=== PATIENT | male | born 1935 | race Caucasian/White ===

== ENCOUNTER → 2017-09-25 | Outpatient (CLI) | payer MEDICARE | END | disposition home or self-care (01) | LOC: PETSC 11:22 | DX: S22.32XA Fracture of one rib, left side, initial encounter for closed fracture (principal); J43.2 Centrilobular emphysema; R91.1 Solitary pulmonary nodule; Z72.0 Tobacco use; X58.XXXA Exposure to other specified factors, initial encounter; Y93.89 Activity, other specified; Y92.89 Other specified places as the place of occurrence of the external cause; Y99.8 Other external cause status | CPT/HCPCS: 78815; A9552 ==

== ENCOUNTER 2018-08-03 13:29 | Inpatient (IN) | payer MEDICARE ==
[2018-08-03] VITALS (10 sets, daily range): BP systolic 100–144; BP diastolic 60–77
[~2018-08-03] VITALS: Ht 177.8 cm; Wt 69.9 kg
[2018-08-03] MEDS ORDERED: AZITHROMYCIN 250 MG TABLET. PO ONE (15:30)
[2018-08-03] MEDS ORDERED: PHYTONADIONE 10 MG/ML AMPUL. SQ ONE (15:45)
[2018-08-03 16:09] LABS: BASO % 0 % (0-3); EOS % 0 % (0-3); HEMATOCRIT 25.3 % (39.0-53.0); HEMOGLOBIN 8.4 g/dL (13.0-17.5); LYMPH # 0.3 x10^3/uL (1.0-4.8); LYMPH % 5 % (24-48); MEAN CORPUSCULAR HEMOGLOBIN 31 pg (25-35); MEAN CORPUSCULAR HGB CONC 33 g/dL (31-37); MEAN CORPUSCULAR VOLUME 94 fL (79-100); MONO # 0.4 x10^3/uL (0.0-1.1); MONO % 7 % (0-9); NEUT # 4.6 x10^3uL (1.8-7.7); NEUT % 88 % (31-73); PLATELET COUNT 203 x10^3/uL (140-400); RED BLOOD COUNT 2.69 x10^6/uL (4.30-5.70); RED CELL DISTRIBUTION WIDTH 14.3 % (11.5-14.5); WHITE BLOOD COUNT 5.3 x10^3/uL (4.0-11.0)
[2018-08-03 16:21] LABS: CALCIUM 8.8 mg/dL (8.5-10.1); CREATININE 1.3 mg/dL (0.7-1.3); GFR 52.6; POTASSIUM 4.4 mmol/L (3.5-5.1)
[2018-08-03] MEDS: IPRATRPIUM/ALBUTEROL 0.5/2.5MG 3 ML NEBU. NEB SCH ×2 (16:26→19:21)
--- NOTE | 2018-08-03 16:42 | PDOC2 ---
GI CONSULT Reason For Consult: Hgb dropping HPI: HPI: 83 y/o male who says he felt unsteady about 1 week ago - he fell and his helped him to the ground. Since then, has had SOA, subjective fever, and cough. Additionally, decreased appetite. He saw his PCP this morning who sent him to [facility] [place] [facility] w/ Hgb "that was a couple points lower than last time" (details unclear). At [place], Hgb 9.4, MCV 96, plt 252, INR 6.2 (on Warfarin), BUN 31, Cr 1.3, and fecal occult positive. CXR was unrevealing for acute issue. He was transferred to [facility] for further care. I saw him this afternoon w/ his Lucie present. He denies obvious bleeding including hematemesis, hematochezia, and melena. He denies n/v, abd pain, diarrhea, and constipation. He has lost 5 pounds during the past week. He has rare acid reflux improved w/ 1/2 Tums PRN. He had an EGD w/ Dr. Lawrence in 2006 (describes dark stools around the time heart stents were placed) that showed Grade 1 reflux esophagitis, single cratered gastric ulcer (in lesser curve), and normal duodenum. No path available at our office; however, the patient describes what soudns like H. pylori treatment. No previous colonoscopy. No liver, GB, or pancreas history. H/o CAD, PAD, and A Fib on Warfarin (check INR once a month, last was 2.9 ~2 weeks ago) and ASA 81mg QD. Occasional NSAID use. PMH: PMH: CAD, OR, A Fib, COPD, trigeminal neuralgia cardiac stents, CABG, RFA stent, ?AAA repair, tonsillectomy, appendectomy, right FH: Family History: Cancer (sister - breast, daughter - pancreatic) Social History: Smoke: <1 pack per day ALCOHOL: none Drugs: None ROS: GEN: +fevers HEENT: Denies blurred vision, sore throat CV: Denies chest pain RESP: +SOA +cough GI: Per HPI : Denies hematuria, dysuria ENDO: +weight loss NEURO: +dizziness MSK: +weakness SKIN: Denies jaundice, pruritus Vitals: Vitals: Vital Signs Date Time Temp Pulse Resp B/P (MAP) Pulse Ox O2 Delivery O2 Flow Rate FiO2 08/03/18 16:13 97.6 101 18 113/71 (85) 96 Nasal Cannula 2.0 97.6 Labs: Labs: Laboratory Tests Test 08/03/18 15:45 White Blood Count 5.3 x10^3/uL (4.0-11.0) Red Blood Count 2.69 x10^6/uL (4.30-5.70) Hemoglobin 8.4 g/dL (13.0-17.5) Hematocrit 25.3 % (39.0-53.0) Mean Corpuscular Volume 94 fL (79-100) Mean Corpuscular Hemoglobin 31 pg (25-35) Mean Corpuscular Hemoglobin Concent 33 g/dL (31-37) Red Cell Distribution Width 14.3 % (11.5-14.5) Platelet Count 203 x10^3/uL (140-400) Neutrophils (%) (Auto) 88 % (31-73) Lymphocytes (%) (Auto) 5 % (24-48) Monocytes (%) (Auto) 7 % (0-9) Eosinophils (%) (Auto) 0 % (0-3) Basophils (%) (Auto) 0 % (0-3) Neutrophils # (Auto) 4.6 x10^3uL (1.8-7.7) Lymphocytes # (Auto) 0.3 x10^3/uL (1.0-4.8) Monocytes # (Auto) 0.4 x10^3/uL (0.0-1.1) Eosinophils # (Auto) 0.0 x10^3/uL (0.0-0.7) Basophils # (Auto) 0.0 x10^3/uL (0.0-0.2) Sodium Level 134 mmol/L (136-145) Potassium Level 4.4 mmol/L (3.5-5.1) Chloride Level 97 mmol/L (98-107) Carbon Dioxide Level 29 mmol/L (21-32) Anion Gap 8 (6-14) Blood Urea Nitrogen 29 mg/dL (8-26) Creatinine 1.3 mg/dL (0.7-1.3) Estimated GFR (Cockcroft-Gault) 52.6 Glucose Level 137 mg/dL (70-99) Calcium Level 8.8 mg/dL (8.5-10.1) Allergies: Coded Allergies: No Known Drug Allergies (Unverified , 08/03/18) PE: GEN: NAD HEENT: Atraumatic, PERRL LUNGS: productive cough, NC, diminished anteriorly HEART: RRR - distant ABD: NABS, S/ND/NT EXTREMITY: No edema SKIN: No rashes, no jaundice NEURO/PSYCH: A & O 3, very pleasant A/P: A/P: Dizziness, SOA, fevers, cough, decreased appetite Warfarin coagulopathy - INR 6.2 Normocytic anemia, +fecal occult - denies obvious bleeding, baseline Hgb unclear H/o PUD - on EGD in 2006 as above, ?H. pylori CRC screen - none H/o A Fib, CAD, PAD, COPD -- INR and pulm issues per primary - note orders for azithromycin, prednisone, FFP, and vit K. Monitor labs, observe for bleeding. Reviewed w/ Dr. Markham - IV PPI and NPO for now, check CBC every 8-12 hours and transfuse as needed to keep Hgb in 9-10 range w/ significant ischemic cardiac disease, also recheck INR in 4 hours and give prothrombin complex concentrate if still high. I will also return to his room for rectal exam. AMANDO VARNER August 03, 2018 16:41
[2018-08-03 16:43] LABS: % BANDS 23 % (0-9); % LYMPHS 4 % (24-48); % METAS 2 % (0-0); % MONOS 2 % (0-10); % SEGS 69 % (35-66); PLT ESTIMATE ADEQUATE (ADEQUATE); TOXIC GRANULATION SLIGHT
--- NOTE | 2018-08-03 17:32 | PDOC1 ---
History and Physical Date of Admission Date of Admission DATE: 08/03/18 TIME: 17:27 Identification/Chief Complaint Chief Complaint cough, weakness, anemia Source Source: Caregiver, Chart review History of Present Illness History of Present Illness Mr. Luong, 83 y/o male transfer here from [place] [facility] for weakness, cough, marked Hgb drop, 4 g/dl he has felt chest congestion and weakness for about a weak, presyncope at home, has had SOA, subjective fever, and cough. he reports no known change in stool, no blood in stool, hemocult pos at [facility] [place], Hgb 9.4, MCV 96, plt 252, INR 6.2 [ropr EGD w/ Dr. Lawrence in 2006 and had esophagitis, takes NSAIds Past Medical History Past Medical History H/o CAD, PAD, and A Fib on Warfarin Cardiovascular: CAD, HTN Pulmonary: No pertinent hx GI: GERD Heme/Onc: No pertinent hx Psych: No pertinent hx Musculoskeletal: low back pain Infectious disease: No pertinent hx ENT: No pertinent hx Past Surgical History Past Surgical History: Other, No pertinent history Family History Family History: Heart Disease Family History: Parent Social History Smoke: <1 pack per day ALCOHOL: none Drugs: None Current Medications Current Medications Current Medications Budesonide (Pulmicort) 0.5 mg RTBID NEB ; Start 08/03/18 at 20:00 Prednisone (Prednisone) 40 mg DAILY PO ; Start 08/03/18 at 16:30 Albuterol/ Ipratropium (Duoneb) 3 ml Q4HRS W/A NEB Last administered on 08/03/18at 16:26; Start 08/03/18 at 18:00 Azithromycin (Zithromax) 250 mg DAILY PO ; Start 08/04/18 at 09:00 Azithromycin (Zithromax) 250 mg 1X ONCE PO ; Start 08/03/18 at 15:30; Stop 08/03/18 at 16:02; Status DC Phytonadione (Vitamin K Ampule) 5 mg 1X ONCE SQ Last administered on 08/03/18at 17:09; Start 08/03/18 at 15:45; Stop 08/03/18 at 16:03; Status DC Pantoprazole Sodium 80 mg/ Sodium Chloride 100 ml @ 10 mls/hr Q10H IV ; Start 08/03/18 at 16:45 Metoprolol Tartrate (Lopressor) 25 mg BID PO ; Start 08/03/18 at 21:00 Allergies Allergies: Coded Allergies: No Known Drug Allergies (Unverified , 08/03/18) ROS General: YES: Fatigue, Malaise, Appetite; No: Chills, Night Sweats, Other PSYCHOLOGICAL ROS: YES: Sleep disturbances; No: Anxiety, Behavioral Disorder, Concentration difficultie, Decreased libido, Depression, Disorientation, Hallucinations, Hostility, Irritablity, Memory difficulties, Mood Swings, Obsessive thoughts, Physical abuse, Sexual abuse, Suicidal ideation, Other Eyes: No Blurry vision, No Decreased vision, No Double vision, No Dry eyes, No Excessive tearing, No Eye Pain, No Itchy Eyes, No Loss of vision, No Photophobia, No Scotomata, No Uses contacts, No Uses glasses, No Other Respiratory: YES: Shortness of breath, SOB with excertion, Sputum Changes, Tachypnea Cardiovascular: No Chest Pain, No Palpitations, No Orthopnea, No Paroxysmal Noc. Dyspnea, No Edema, No Lt Headedness, No Other Gastrointestinal: Yes Nausea; No Vomiting, No Abdominal Pain, No Diarrhea, No Constipation, No Melena, No Hematochezia, No Other Genitourinary: No Dysuria, No Frequency, No Incontinence, No Hematuria, No Retention, No Discharge, No Urgency, No Pain, No Flank Pain, No Other, No , No , No , No , No , No , No Musculoskeletal: No Gait Disturbance, No Joint Pain, No Joint Stiffness, No Joint Swelling, No Muscle Pain, No Muscular Weakness, No Pain In:, No Swelling In:, No Other Neurological: No Behavorial Changes, No Bowel/Bladder ControlChng, No Confusion, No Dizziness, No Gait Disturbance, No Headaches, No Impaired Coord/balance, No Memory Loss, No Numbness/Tingling, No Seizures, No Speech Problems, No Tremors, No Visual Changes, No Weakness, No Other Skin: No Dry Skin, No Eczema, No Hair Changes, No Lumps, No Mole Changes, No Mottling, No Nail Changes, No Pruritus, No Rash, No Skin Lesion Changes, No Other, No Acne Physical Exam General: Alert, Oriented X3, Cooperative HEENT: Atraumatic, PERRLA Lungs: Clear to auscultation Heart: RRR Abdomen: Normal bowel sounds, Soft Rectal Exam: other (occult pos) Extremities: No clubbing Neuro: Normal gait, Normal speech, Strength at 5/5 X4 ext, Sensation intact Psych/Mental Status: Mental status NL, Mood NL Vitals Vitals Vital Signs Date Time Temp Pulse Resp B/P (MAP) Pulse Ox O2 Delivery O2 Flow Rate FiO2 08/03/18 16:13 97.6 101 18 113/71 (85) 96 Nasal Cannula 2.0 97.6 Labs Labs Laboratory Tests Test 08/03/18 15:45 White Blood Count 5.3 x10^3/uL (4.0-11.0) Red Blood Count 2.69 x10^6/uL (4.30-5.70) Hemoglobin 8.4 g/dL (13.0-17.5) Hematocrit 25.3 % (39.0-53.0) Mean Corpuscular Volume 94 fL (79-100) Mean Corpuscular Hemoglobin 31 pg (25-35) Mean Corpuscular Hemoglobin Concent 33 g/dL (31-37) Red Cell Distribution Width 14.3 % (11.5-14.5) Platelet Count 203 x10^3/uL (140-400) Neutrophils (%) (Auto) 88 % (31-73) Lymphocytes (%) (Auto) 5 % (24-48) Monocytes (%) (Auto) 7 % (0-9) Eosinophils (%) (Auto) 0 % (0-3) Basophils (%) (Auto) 0 % (0-3) Neutrophils # (Auto) 4.6 x10^3uL (1.8-7.7) Lymphocytes # (Auto) 0.3 x10^3/uL (1.0-4.8) Monocytes # (Auto) 0.4 x10^3/uL (0.0-1.1) Eosinophils # (Auto) 0.0 x10^3/uL (0.0-0.7) Basophils # (Auto) 0.0 x10^3/uL (0.0-0.2) Segmented Neutrophils % 69 % (35-66) Band Neutrophils % 23 % (0-9) Lymphocytes % 4 % (24-48) Monocytes % 2 % (0-10) Metamyelocytes % 2 % (0-0) Toxic Granulation Slight Dohle Bodies Present Platelet Estimate Adequate (ADEQUATE) Prothrombin Time 63.0 SEC (11.7-14.0) Prothromb Time International Ratio 7.3 (0.8-1.1) Sodium Level 134 mmol/L (136-145) Potassium Level 4.4 mmol/L (3.5-5.1) Chloride Level 97 mmol/L (98-107) Carbon Dioxide Level 29 mmol/L (21-32) Anion Gap 8 (6-14) Blood Urea Nitrogen 29 mg/dL (8-26) Creatinine 1.3 mg/dL (0.7-1.3) Estimated GFR (Cockcroft-Gault) 52.6 Glucose Level 137 mg/dL (70-99) Calcium Level 8.8 mg/dL (8.5-10.1) Laboratory Tests Test 08/03/18 15:45 White Blood Count 5.3 x10^3/uL (4.0-11.0) Red Blood Count 2.69 x10^6/uL (4.30-5.70) Hemoglobin 8.4 g/dL (13.0-17.5) Hematocrit 25.3 % (39.0-53.0) Mean Corpuscular Volume 94 fL (79-100) Mean Corpuscular Hemoglobin 31 pg (25-35) Mean Corpuscular Hemoglobin Concent 33 g/dL (31-37) Red Cell Distribution Width 14.3 % (11.5-14.5) Platelet Count 203 x10^3/uL (140-400) Neutrophils (%) (Auto) 88 % (31-73) Lymphocytes (%) (Auto) 5 % (24-48) Monocytes (%) (Auto) 7 % (0-9) Eosinophils (%) (Auto) 0 % (0-3) Basophils (%) (Auto) 0 % (0-3) Neutrophils # (Auto) 4.6 x10^3uL (1.8-7.7) Lymphocytes # (Auto) 0.3 x10^3/uL (1.0-4.8) Monocytes # (Auto) 0.4 x10^3/uL (0.0-1.1) Eosinophils # (Auto) 0.0 x10^3/uL (0.0-0.7) Basophils # (Auto) 0.0 x10^3/uL (0.0-0.2) Segmented Neutrophils % 69 % (35-66) Band Neutrophils % 23 % (0-9) Lymphocytes % 4 % (24-48) Monocytes % 2 % (0-10) Metamyelocytes % 2 % (0-0) Toxic Granulation Slight Dohle Bodies Present Platelet Estimate Adequate (ADEQUATE) Prothrombin Time 63.0 SEC (11.7-14.0) Prothromb Time International Ratio 7.3 (0.8-1.1) Sodium Level 134 mmol/L (136-145) Potassium Level 4.4 mmol/L (3.5-5.1) Chloride Level 97 mmol/L (98-107) Carbon Dioxide Level 29 mmol/L (21-32) Anion Gap 8 (6-14) Blood Urea Nitrogen 29 mg/dL (8-26) Creatinine 1.3 mg/dL (0.7-1.3) Estimated GFR (Cockcroft-Gault) 52.6 Glucose Level 137 mg/dL (70-99) Calcium Level 8.8 mg/dL (8.5-10.1) VTE Prophylaxis Ordered VTE Prophylaxis Devices: Contraindicated VTE Pharmacological Prophylaxi: Contraindicated Assessment/Plan Assessment/Plan marked hgb drop, acute blood loss anemia, supratherapeutic INR on coumadin, cough, dyspnea acute bronchitis, likely COPD with exac tobacco use disorder, trying to quit, I gave encouragement, < 30 min ESTELLA SPENCER MD August 03, 2018 17:32
[2018-08-03 18:10] LABS: TOTAL BILIRUBIN 0.3 mg/dL (0.2-1.0)
[2018-08-03] MEDS: predniSONE 20 MG TABLET PO SCH (18:27)
[2018-08-03] MEDS: BUDESONIDE 0.5 MG/2 ML NEBU. NEB SCH (19:21)
[2018-08-03] MEDS ORDERED: CONTRAST GIVEN. MC PRN (20:45)
[2018-08-03] MEDS ORDERED: IOHEXOL 300 MG/ML 100ML VIAL. IV ONE (20:45)
[2018-08-03] MEDS: METOPROLOL TART IMMED RELEASE 25 MG TABLET. PO SCH (22:02)
[2018-08-03] MEDS: PANTOPRAZOLE SODIUM IV DRIP 80 MG in IV NORMAL SALINE 100ML 100 ML IV SCH (22:02)
[2018-08-04] MEDS ORDERED: CARB200T PO (00:39)
[2018-08-04] MEDS ORDERED: FURO40TA4 PO (00:39)
[2018-08-04] MEDS ORDERED: METO25TA4 PO (00:39)
[2018-08-04] MEDS ORDERED: WARF7.5T45 PO (00:39)
[2018-08-04] MEDS ORDERED: MECL25TA3 PO (00:39)
[2018-08-04] MEDS ORDERED: GABA600T7 PO (00:39)
[2018-08-04] MEDS ORDERED: WARF10TA40 PO (00:39)
[2018-08-04] MEDS ORDERED: POTA20PA30 PO (00:39)
[2018-08-04] MEDS ORDERED: CRESTOR20 MG PO (00:39)
[2018-08-04] MEDS ORDERED: ASPI-612 PO (00:39)
[2018-08-04 03:11] VITALS: BP 120/71
--- NOTE | 2018-08-04 06:28 | NUR ---
Notified Dr. Mclean of Hr 34, 36 and pauses. Will put copy of events on chart for doctor to review.
[2018-08-04 07:00] VITALS: BP 126/68
[2018-08-04] MEDS: BUDESONIDE 0.5 MG/2 ML NEBU. NEB SCH ×2 (07:23→19:59)
[2018-08-04] MEDS: IPRATRPIUM/ALBUTEROL 0.5/2.5MG 3 ML NEBU. NEB SCH ×5 (07:23→22:00)
[2018-08-04 07:46] LABS: BASO % 0 % (0-3); EOS % 0 % (0-3); HEMATOCRIT 26.7 % (39.0-53.0); HEMOGLOBIN 9.1 g/dL (13.0-17.5); LYMPH # 0.6 x10^3/uL (1.0-4.8); LYMPH % 10 % (24-48); MEAN CORPUSCULAR HEMOGLOBIN 31 pg (25-35); MEAN CORPUSCULAR HGB CONC 34 g/dL (31-37); MEAN CORPUSCULAR VOLUME 92 fL (79-100); MONO # 0.7 x10^3/uL (0.0-1.1); MONO % 12 % (0-9); NEUT % 79 % (31-73); PLATELET COUNT 214 x10^3/uL (140-400); RED CELL DISTRIBUTION WIDTH 14.8 % (11.5-14.5); WHITE BLOOD COUNT 6.4 x10^3/uL (4.0-11.0)
[2018-08-04 07:55] LABS: ALBUMIN 2.3 g/dL (3.4-5.0); ALBUMIN/GLOBULIN RATIO 0.5 (1.0-1.7); CALCIUM 8.9 mg/dL (8.5-10.1); CREATININE 1.1 mg/dL (0.7-1.3); GFR 63.8; POTASSIUM 4.1 mmol/L (3.5-5.1); TOTAL BILIRUBIN 0.4 mg/dL (0.2-1.0); TOTAL PROTEIN 6.6 g/dL (6.4-8.2)
[2018-08-04 08:02] LABS: PROTHROMBIN TIME PATIENT 23.8 SEC (11.7-14.0)
[2018-08-04] MEDS ORDERED: IOHEXOL 300 MG/ML 100ML VIAL. IV ONE (08:45)
[2018-08-04] MEDS: predniSONE 20 MG TABLET PO SCH (08:55)
[2018-08-04] MEDS: AZITHROMYCIN 250 MG TABLET. PO SCH (08:55)
[2018-08-04] MEDS: METOPROLOL TART IMMED RELEASE 25 MG TABLET. PO SCH ×2 (08:56→21:29)
[2018-08-04] MEDS: PANTOPRAZOLE SODIUM IV DRIP 80 MG in IV NORMAL SALINE 100ML 100 ML IV SCH (08:57)
[2018-08-04] MEDS ORDERED: CONTRAST GIVEN. MC PRN (09:00)
[2018-08-04] MEDS ORDERED: IV NORMAL SALINE 1000ML BAG 1,000 ML IV ONE (09:30)
--- NOTE | 2018-08-04 09:43 | CONS ---
DATE OF CONSULTATION: ATTENDING PHYSICIAN: Dr. Phillips. REASON FOR CONSULTATION: Dyspnea, weakness. HISTORY OF PRESENT ILLNESS: The patient is an 83-year-old male who has a history of ongoing tobacco use for at least 40+ years. He also has history of enlarging nodule in the left upper lobe and due to high risk for biopsy, he had empiric radiation to his chest and has been followed by Oncology from [facility] at a clinic in [place]. The patient has been told that his nodule has been shrinking. He was brought into the hospital with increasing weakness, he was found to have hemoglobin of 4. He felt chest congestion and weakness as well. He had some presyncope at home. He normally is not on oxygen and currently requiring 2-3 liters of oxygen. No headaches. No nausea, no vomiting, no diarrhea. No focal weakness. No skin rash. No imaging study has been performed yet. PAST MEDICAL HISTORY: Significant for history of CAD; history of atrial fibrillation, on warfarin; history of PAD; hypertension; GERD. PAST SURGICAL HISTORY: No recent surgery. ALLERGIES: None. MEDICATIONS: All reviewed, as listed in the MRAD. REVIEW OF SYSTEMS: Twelve-point system obtained. Pertinent positives discussed in my history of present illness, otherwise noncontributory. All systems that were negative were reviewed as well. SOCIAL HISTORY: Tobacco use for 40+ years and still smokes cigarettes. PHYSICAL EXAMINATION: VITAL SIGNS: Stable. Pulse ox 94% on 2 liters. NECK: Supple. LUNGS: With occasional wheezing and rhonchi. CARDIOVASCULAR: Regular rate. ABDOMEN: Soft, nontender. EXTREMITIES: With no pitting edema. LABORATORY DATA: Reviewed. Hemoglobin is now 9.1. White cell count 6.4 and platelets are 215. BUN and creatinine 27 and 1.1. IMPRESSION: 1. Dyspnea with acute hypoxic respiratory failure secondary to acute exacerbation of chronic obstructive pulmonary disease and markedly contributed by progressive anemia. 2. Acute blood loss anemia. Could be [id number]. He presented with hemoglobin of 4.0 at [place], now hemoglobin is up to 9.1. 3. History of increasing nodule involving the left upper lobe, which was 11 mm in size and also right hilar fullness. He had abnormal PET scan in 2018 in those areas and he was a high risk candidate for biopsy. As a result, he has been empirically treated by school photograph editor from [facility]. He sees them at [facility] and has a last CAT scan done a month ago and was told that it has been shrinking. 4. Severe protein-calorie malnutrition with an albumin level of 2.3. 5. Acute bronchitis. Cannot exclude pneumonia, need a chest x-ray. 6. Atrial fibrillation, on chronic anticoagulation with Coumadin and had Coumadin overdose with INR of 7.3, now down to 2.2. RECOMMENDATIONS: 1. Continue with present oxygen. 2. Obtain chest x-ray. 3. Bronchodilators. 4. Empiric antibiotic for now. 5. Follow GI recommendations. 6. The patient to follow with [facility] regarding further followup on these lung nodules and right hilar fullness. DORITA PATTON MD DR: CINDY/lianne JOB#: [id number] / [id number] NORMA
--- NOTE | 2018-08-04 09:48 | PDOC ---
Subjective: Subjective: Had clear liquids for breakfast. Says two small stools yesterday were dark. Breathing is better but feels best while sitting up. Wants to know the plan because he doesn't want his to have to keep driving to the hospital because she has her dog and yard to take care of. Objective: Objective: CT A/P ordered last night not done. Received 1 unit pRBCs and FFP, also vit K. Note orders to advance diet as tolerated. RN thinks there might have been some darker blood surrounding stool this morning. Vital Signs: Vital Signs Date Time Temp Pulse Resp B/P (MAP) Pulse Ox O2 Delivery O2 Flow Rate FiO2 08/04/18 08:56 92 126/68 08/04/18 08:00 Nasal Cannula 2.0 08/04/18 07:24 94 08/04/18 07:00 97.5 18 97.5 Labs: Laboratory Tests Test 08/03/18 15:45 08/04/18 06:00 White Blood Count 5.3 x10^3/uL 6.4 x10^3/uL Red Blood Count 2.69 x10^6/uL 2.90 x10^6/uL Hemoglobin 8.4 g/dL 9.1 g/dL Hematocrit 25.3 % 26.7 % Mean Corpuscular Volume 94 fL 92 fL Mean Corpuscular Hemoglobin 31 pg 31 pg Mean Corpuscular Hemoglobin Concent 33 g/dL 34 g/dL Red Cell Distribution Width 14.3 % 14.8 % Platelet Count 203 x10^3/uL 214 x10^3/uL Neutrophils (%) (Auto) 88 % 79 % Lymphocytes (%) (Auto) 5 % 10 % Monocytes (%) (Auto) 7 % 12 % Eosinophils (%) (Auto) 0 % 0 % Basophils (%) (Auto) 0 % 0 % Neutrophils # (Auto) 4.6 x10^3uL 5.0 x10^3uL Lymphocytes # (Auto) 0.3 x10^3/uL 0.6 x10^3/uL Monocytes # (Auto) 0.4 x10^3/uL 0.7 x10^3/uL Eosinophils # (Auto) 0.0 x10^3/uL 0.0 x10^3/uL Basophils # (Auto) 0.0 x10^3/uL 0.0 x10^3/uL Segmented Neutrophils % 69 % Band Neutrophils % 23 % Lymphocytes % 4 % Monocytes % 2 % Metamyelocytes % 2 % Toxic Granulation Slight Dohle Bodies Present Platelet Estimate Adequate Prothrombin Time 63.0 SEC 23.8 SEC Prothromb Time International Ratio 7.3 2.2 Fibrinogen 837 mg/dL Sodium Level 134 mmol/L 137 mmol/L Potassium Level 4.4 mmol/L 4.1 mmol/L Chloride Level 97 mmol/L 101 mmol/L Carbon Dioxide Level 29 mmol/L 27 mmol/L Anion Gap 8 9 Blood Urea Nitrogen 29 mg/dL 27 mg/dL Creatinine 1.3 mg/dL 1.1 mg/dL Estimated GFR (Cockcroft-Gault) 52.6 63.8 Glucose Level 137 mg/dL 120 mg/dL Calcium Level 8.8 mg/dL 8.9 mg/dL Total Bilirubin 0.3 mg/dL 0.4 mg/dL Lactate Dehydrogenase 142 U/L BUN/Creatinine Ratio 25 Aspartate Amino Transf (AST/SGOT) 56 U/L Alanine Aminotransferase (ALT/SGPT) 54 U/L Alkaline Phosphatase 145 U/L Total Protein 6.6 g/dL Albumin 2.3 g/dL Albumin/Globulin Ratio 0.5 PE: GEN: NAD LUNGS: NC HEART: RR ABD: S/ND/NT NEURO/PSYCH: A & O 3 A/P: SOA, cough, h/o COPD - per pulm, CXR ordered Warfarin coagulopathy - improved (INR 7.3 to 2.2) Anemia, +fecal occult - stable w/ transfusion; h/o PUD in 2006, no previous colonoscopy -- Taking liquids this morning. Can change to PO PPI. Additional recs per Dr. Markham. Since I have seen: CT A/P: There is trace left pleural effusion. There has been median sternotomy. There is minimal atelectasis of the lower lobes of the lung bases bilaterally. There are multiple hypodense liver lesions, some of which have density characteristics of simple cysts although others which are indeterminate for simple cyst about 20 Hounsfield units. Largest measures about 5 cm. There is mild calcification associated with the right adrenal gland likely due to sequela of previous hemorrhage or infection, no left adrenal nodularity. Both kidneys enhance, no hydronephrosis. There are some small calcifications of the renal hilar regions bilaterally although some which may be vascular in etiology. Gallbladder is present without obvious intraluminal abnormality by CT. No focal abnormality is identified of the pancreas or spleen. 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 Urinary bladder is distended. There is mild prostatomegaly. Accurate evaluation of bowel is limited without oral contrast. Bowel is not significantly dilated. There is no free fluid or free air. No focal retroperitoneal hematoma is identified. There is multilevel thoracolumbar degenerative disc disease. IMPRESSION: 1. No focal hematoma is identified. 2. There are hypodense liver lesions, some which have characteristics of simple cysts and others which are indeterminate for simple cysts although possibly complex cysts. 3. There is distention of the urinary bladder. There is mild prostatomegaly. 4. There are a few small calcifications of the bilateral kidneys although may be in part vascular in etiology. CXR Impression: No infiltrate. Pulmonary hyperinflation suspected. Reviewed w/ Dr. Shahrzad bassett to advance diet as tolerated. Continue PPI. Avoid NSAIDs. Follow-up for outpt EGD and colonoscopy. AMANDO VARNER August 04, 2018 09:47
[2018-08-04] MEDS ORDERED: FUROSEMIDE 40 MG TABLET. PO SCH (10:00)
[2018-08-04] MEDS ORDERED: carBAMazepine 200 MG TABLET PO SCH (10:00)
[2018-08-04] MEDS: MECLIZINE HCL 12.5 MG TABLET. PO SCH ×3 (10:20→21:29)
[2018-08-04] MEDS: GABAPENTIN 300 MG CAPSULE. PO SCH ×3 (10:21→21:29)
[2018-08-04 11:00] VITALS: BP 133/67
[2018-08-04] MEDS ORDERED: carBAMazepine 200 MG TABLET PO ONE (11:00)
--- NOTE | 2018-08-04 11:37 | RAD ---
Examination: PORTABLE CHEST 1V History: Cough Comparison/Correlation: None Findings: Portable upright frontal view chest was obtained. Sternal wires are present. Surgical clips involve the lung apical level bilaterally. Tortuosity thoracic aorta is present. Mediastinal clips noted. No infiltrate or pleural effusion. Pulmonary hyperinflation is suggested. No acute bony process. Impression: No infiltrate. Pulmonary hyperinflation suspected. Electronically signed by: Richar Moore MD (08/04/2018 11:34 AM) [facility]
--- NOTE | 2018-08-04 11:43 | RAD ---
CT ABD PELV W/ IV CONTRST ONLY Indication: Requiring blood transfusion, drop in hemoglobin Technique: Postcontrast CT imaging was performed of the abdomen pelvis, multiplanar reconstruction images submitted. One or more of the following individualized dose reduction techniques were utilized for this examination: 1. Automated exposure control 2. Adjustment of the mA and/or kV according to patient size 3. Use of iterative reconstruction technique. Comparison: None Findings: There is trace left pleural effusion. There has been median sternotomy. There is minimal atelectasis of the lower lobes of the lung bases bilaterally. There are multiple hypodense liver lesions, some of which have density characteristics of simple cysts although others which are indeterminate for simple cyst about 20 Hounsfield units. Largest measures about 5 cm. There is mild calcification associated with the right adrenal gland likely due to sequela of previous hemorrhage or infection, no left adrenal nodularity. Both kidneys enhance, no hydronephrosis. There are some small calcifications of the renal hilar regions bilaterally although some which may be vascular in etiology. Gallbladder is present without obvious intraluminal abnormality by CT. No focal abnormality is identified of the pancreas or spleen. 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 Urinary bladder is distended. There is mild prostatomegaly. Accurate evaluation of bowel is limited without oral contrast. Bowel is not significantly dilated. There is no free fluid or free air. No focal retroperitoneal hematoma is identified. There is multilevel thoracolumbar degenerative disc disease. IMPRESSION: 1. No focal hematoma is identified. 2. There are hypodense liver lesions, some which have characteristics of simple cysts and others which are indeterminate for simple cysts although possibly complex cysts. 3. There is distention of the urinary bladder. There is mild prostatomegaly. 4. There are a few small calcifications of the bilateral kidneys although may be in part vascular in etiology. Electronically signed by: Sharath Ellis MD (08/04/2018 11:40 AM) [id number]
--- NOTE | 2018-08-04 14:27 | NUR ---
SW following Pt for anticipated dc needs. Chart reviewed. Pt lives at home with spouse and currently on 02. Pulmonary and GI following pt. Will continue to assess dc needs.
[2018-08-04 15:00] VITALS: BP 135/69
--- NOTE | 2018-08-04 15:14 | PDOC ---
PROGRESS NOTES Chief Complaint Chief Complaint marked hgb drop, acute blood loss anemia, supratherapeutic INR on coumadin, cough, dyspnea acute bronchitis, COPD with exac Afib, chronic diastolic CHF, follows at tobacco use disorder, trying to quit, History of Present Illness History of Present Illness I called his broomcorn grader, Dr. Hamilton at [facility] [facility], will need CV follow up more closely for INR consider change to pradaxa or other Vitals Vitals Vital Signs Date Time Temp Pulse Resp B/P (MAP) Pulse Ox O2 Delivery O2 Flow Rate FiO2 08/04/18 11:07 100 Nasal Cannula 2.0 08/04/18 11:00 97.3 75 16 133/67 (89) 97.3 Physical Exam General: Alert, Oriented X3, Cooperative, No acute distress Heart: No murmurs Abdomen: Normal bowel sounds, Soft Extremities: No clubbing Skin: No rashes Labs LABS Laboratory Tests Test 08/03/18 15:45 08/04/18 06:00 White Blood Count 5.3 x10^3/uL (4.0-11.0) 6.4 x10^3/uL (4.0-11.0) Red Blood Count 2.69 x10^6/uL (4.30-5.70) 2.90 x10^6/uL (4.30-5.70) Hemoglobin 8.4 g/dL (13.0-17.5) 9.1 g/dL (13.0-17.5) Hematocrit 25.3 % (39.0-53.0) 26.7 % (39.0-53.0) Mean Corpuscular Volume 94 fL (79-100) 92 fL (79-100) Mean Corpuscular Hemoglobin 31 pg (25-35) 31 pg (25-35) Mean Corpuscular Hemoglobin Concent 33 g/dL (31-37) 34 g/dL (31-37) Red Cell Distribution Width 14.3 % (11.5-14.5) 14.8 % (11.5-14.5) Platelet Count 203 x10^3/uL (140-400) 214 x10^3/uL (140-400) Neutrophils (%) (Auto) 88 % (31-73) 79 % (31-73) Lymphocytes (%) (Auto) 5 % (24-48) 10 % (24-48) Monocytes (%) (Auto) 7 % (0-9) 12 % (0-9) Eosinophils (%) (Auto) 0 % (0-3) 0 % (0-3) Basophils (%) (Auto) 0 % (0-3) 0 % (0-3) Neutrophils # (Auto) 4.6 x10^3uL (1.8-7.7) 5.0 x10^3uL (1.8-7.7) Lymphocytes # (Auto) 0.3 x10^3/uL (1.0-4.8) 0.6 x10^3/uL (1.0-4.8) Monocytes # (Auto) 0.4 x10^3/uL (0.0-1.1) 0.7 x10^3/uL (0.0-1.1) Eosinophils # (Auto) 0.0 x10^3/uL (0.0-0.7) 0.0 x10^3/uL (0.0-0.7) Basophils # (Auto) 0.0 x10^3/uL (0.0-0.2) 0.0 x10^3/uL (0.0-0.2) Segmented Neutrophils % 69 % (35-66) Band Neutrophils % 23 % (0-9) Lymphocytes % 4 % (24-48) Monocytes % 2 % (0-10) Metamyelocytes % 2 % (0-0) Toxic Granulation Slight Dohle Bodies Present Platelet Estimate Adequate (ADEQUATE) Prothrombin Time 63.0 SEC (11.7-14.0) 23.8 SEC (11.7-14.0) Prothromb Time International Ratio 7.3 (0.8-1.1) 2.2 (0.8-1.1) Fibrinogen 837 mg/dL (200-440) Sodium Level 134 mmol/L (136-145) 137 mmol/L (136-145) Potassium Level 4.4 mmol/L (3.5-5.1) 4.1 mmol/L (3.5-5.1) Chloride Level 97 mmol/L (98-107) 101 mmol/L (98-107) Carbon Dioxide Level 29 mmol/L (21-32) 27 mmol/L (21-32) Anion Gap 8 (6-14) 9 (6-14) Blood Urea Nitrogen 29 mg/dL (8-26) 27 mg/dL (8-26) Creatinine 1.3 mg/dL (0.7-1.3) 1.1 mg/dL (0.7-1.3) Estimated GFR (Cockcroft-Gault) 52.6 63.8 Glucose Level 137 mg/dL (70-99) 120 mg/dL (70-99) Calcium Level 8.8 mg/dL (8.5-10.1) 8.9 mg/dL (8.5-10.1) Total Bilirubin 0.3 mg/dL (0.2-1.0) 0.4 mg/dL (0.2-1.0) Lactate Dehydrogenase 142 U/L (85-227) BUN/Creatinine Ratio 25 (6-20) Aspartate Amino Transf (AST/SGOT) 56 U/L (15-37) Alanine Aminotransferase (ALT/SGPT) 54 U/L (16-63) Alkaline Phosphatase 145 U/L (46-116) Total Protein 6.6 g/dL (6.4-8.2) Albumin 2.3 g/dL (3.4-5.0) Albumin/Globulin Ratio 0.5 (1.0-1.7) Review of Systems Review of Systems no n.v.d feels improved, Comment Review of Relevant I have reviewed the following items jorge (where applicable) has been applied. Labs Laboratory Tests Test 08/03/18 15:45 08/04/18 06:00 White Blood Count 5.3 x10^3/uL (4.0-11.0) 6.4 x10^3/uL (4.0-11.0) Red Blood Count 2.69 x10^6/uL (4.30-5.70) 2.90 x10^6/uL (4.30-5.70) Hemoglobin 8.4 g/dL (13.0-17.5) 9.1 g/dL (13.0-17.5) Hematocrit 25.3 % (39.0-53.0) 26.7 % (39.0-53.0) Mean Corpuscular Volume 94 fL (79-100) 92 fL (79-100) Mean Corpuscular Hemoglobin 31 pg (25-35) 31 pg (25-35) Mean Corpuscular Hemoglobin Concent 33 g/dL (31-37) 34 g/dL (31-37) Red Cell Distribution Width 14.3 % (11.5-14.5) 14.8 % (11.5-14.5) Platelet Count 203 x10^3/uL (140-400) 214 x10^3/uL (140-400) Neutrophils (%) (Auto) 88 % (31-73) 79 % (31-73) Lymphocytes (%) (Auto) 5 % (24-48) 10 % (24-48) Monocytes (%) (Auto) 7 % (0-9) 12 % (0-9) Eosinophils (%) (Auto) 0 % (0-3) 0 % (0-3) Basophils (%) (Auto) 0 % (0-3) 0 % (0-3) Neutrophils # (Auto) 4.6 x10^3uL (1.8-7.7) 5.0 x10^3uL (1.8-7.7) Lymphocytes # (Auto) 0.3 x10^3/uL (1.0-4.8) 0.6 x10^3/uL (1.0-4.8) Monocytes # (Auto) 0.4 x10^3/uL (0.0-1.1) 0.7 x10^3/uL (0.0-1.1) Eosinophils # (Auto) 0.0 x10^3/uL (0.0-0.7) 0.0 x10^3/uL (0.0-0.7) Basophils # (Auto) 0.0 x10^3/uL (0.0-0.2) 0.0 x10^3/uL (0.0-0.2) Segmented Neutrophils % 69 % (35-66) Band Neutrophils % 23 % (0-9) Lymphocytes % 4 % (24-48) Monocytes % 2 % (0-10) Metamyelocytes % 2 % (0-0) Toxic Granulation Slight Dohle Bodies Present Platelet Estimate Adequate (ADEQUATE) Prothrombin Time 63.0 SEC (11.7-14.0) 23.8 SEC (11.7-14.0) Prothromb Time International Ratio 7.3 (0.8-1.1) 2.2 (0.8-1.1) Fibrinogen 837 mg/dL (200-440) Sodium Level 134 mmol/L (136-145) 137 mmol/L (136-145) Potassium Level 4.4 mmol/L (3.5-5.1) 4.1 mmol/L (3.5-5.1) Chloride Level 97 mmol/L (98-107) 101 mmol/L (98-107) Carbon Dioxide Level 29 mmol/L (21-32) 27 mmol/L (21-32) Anion Gap 8 (6-14) 9 (6-14) Blood Urea Nitrogen 29 mg/dL (8-26) 27 mg/dL (8-26) Creatinine 1.3 mg/dL (0.7-1.3) 1.1 mg/dL (0.7-1.3) Estimated GFR (Cockcroft-Gault) 52.6 63.8 Glucose Level 137 mg/dL (70-99) 120 mg/dL (70-99) Calcium Level 8.8 mg/dL (8.5-10.1) 8.9 mg/dL (8.5-10.1) Total Bilirubin 0.3 mg/dL (0.2-1.0) 0.4 mg/dL (0.2-1.0) Lactate Dehydrogenase 142 U/L (85-227) BUN/Creatinine Ratio 25 (6-20) Aspartate Amino Transf (AST/SGOT) 56 U/L (15-37) Alanine Aminotransferase (ALT/SGPT) 54 U/L (16-63) Alkaline Phosphatase 145 U/L (46-116) Total Protein 6.6 g/dL (6.4-8.2) Albumin 2.3 g/dL (3.4-5.0) Albumin/Globulin Ratio 0.5 (1.0-1.7) Laboratory Tests Test 08/03/18 15:45 08/04/18 06:00 White Blood Count 5.3 x10^3/uL (4.0-11.0) 6.4 x10^3/uL (4.0-11.0) Red Blood Count 2.69 x10^6/uL (4.30-5.70) 2.90 x10^6/uL (4.30-5.70) Hemoglobin 8.4 g/dL (13.0-17.5) 9.1 g/dL (13.0-17.5) Hematocrit 25.3 % (39.0-53.0) 26.7 % (39.0-53.0) Mean Corpuscular Volume 94 fL (79-100) 92 fL (79-100) Mean Corpuscular Hemoglobin 31 pg (25-35) 31 pg (25-35) Mean Corpuscular Hemoglobin Concent 33 g/dL (31-37) 34 g/dL (31-37) Red Cell Distribution Width 14.3 % (11.5-14.5) 14.8 % (11.5-14.5) Platelet Count 203 x10^3/uL (140-400) 214 x10^3/uL (140-400) Neutrophils (%) (Auto) 88 % (31-73) 79 % (31-73) Lymphocytes (%) (Auto) 5 % (24-48) 10 % (24-48) Monocytes (%) (Auto) 7 % (0-9) 12 % (0-9) Eosinophils (%) (Auto) 0 % (0-3) 0 % (0-3) Basophils (%) (Auto) 0 % (0-3) 0 % (0-3) Neutrophils # (Auto) 4.6 x10^3uL (1.8-7.7) 5.0 x10^3uL (1.8-7.7) Lymphocytes # (Auto) 0.3 x10^3/uL (1.0-4.8) 0.6 x10^3/uL (1.0-4.8) Monocytes # (Auto) 0.4 x10^3/uL (0.0-1.1) 0.7 x10^3/uL (0.0-1.1) Eosinophils # (Auto) 0.0 x10^3/uL (0.0-0.7) 0.0 x10^3/uL (0.0-0.7) Basophils # (Auto) 0.0 x10^3/uL (0.0-0.2) 0.0 x10^3/uL (0.0-0.2) Segmented Neutrophils % 69 % (35-66) Band Neutrophils % 23 % (0-9) Lymphocytes % 4 % (24-48) Monocytes % 2 % (0-10) Metamyelocytes % 2 % (0-0) Toxic Granulation Slight Dohle Bodies Present Platelet Estimate Adequate (ADEQUATE) Prothrombin Time 63.0 SEC (11.7-14.0) 23.8 SEC (11.7-14.0) Prothromb Time International Ratio 7.3 (0.8-1.1) 2.2 (0.8-1.1) Fibrinogen 837 mg/dL (200-440) Sodium Level 134 mmol/L (136-145) 137 mmol/L (136-145) Potassium Level 4.4 mmol/L (3.5-5.1) 4.1 mmol/L (3.5-5.1) Chloride Level 97 mmol/L (98-107) 101 mmol/L (98-107) Carbon Dioxide Level 29 mmol/L (21-32) 27 mmol/L (21-32) Anion Gap 8 (6-14) 9 (6-14) Blood Urea Nitrogen 29 mg/dL (8-26) 27 mg/dL (8-26) Creatinine 1.3 mg/dL (0.7-1.3) 1.1 mg/dL (0.7-1.3) Estimated GFR (Cockcroft-Gault) 52.6 63.8 Glucose Level 137 mg/dL (70-99) 120 mg/dL (70-99) Calcium Level 8.8 mg/dL (8.5-10.1) 8.9 mg/dL (8.5-10.1) Total Bilirubin 0.3 mg/dL (0.2-1.0) 0.4 mg/dL (0.2-1.0) Lactate Dehydrogenase 142 U/L (85-227) BUN/Creatinine Ratio 25 (6-20) Aspartate Amino Transf (AST/SGOT) 56 U/L (15-37) Alanine Aminotransferase (ALT/SGPT) 54 U/L (16-63) Alkaline Phosphatase 145 U/L (46-116) Total Protein 6.6 g/dL (6.4-8.2) Albumin 2.3 g/dL (3.4-5.0) Albumin/Globulin Ratio 0.5 (1.0-1.7) Medications Current Medications Budesonide (Pulmicort) 0.5 mg RTBID NEB Last administered on 08/04/18 07:23; Start 08/03/18 at 20:00 Prednisone (Prednisone) 40 mg DAILY PO Last administered on 08/04/18at 08:55; Start 08/03/18 at 16:30 Albuterol/ Ipratropium (Duoneb) 3 ml Q4HRS W/A NEB Last administered on 08/04/18 11:07; Start 08/03/18 at 18:00 Azithromycin (Zithromax) 250 mg DAILY PO Last administered on 08/04/18 08:55; Start 08/04/18 at 09:00 Azithromycin (Zithromax) 250 mg 1X ONCE PO Last administered on 08/03/18at 18:27; Start 08/03/18 at 15:30; Stop 08/03/18 at 16:02; Status DC Phytonadione (Vitamin K Ampule) 5 mg 1X ONCE SQ Last administered on 08/03/18at 17:09; Start 08/03/18 at 15:45; Stop 08/03/18 at 16:03; Status DC Pantoprazole Sodium 80 mg/ Sodium Chloride 100 ml @ 10 mls/hr Q10H IV Last administered on 08/04/18at 08:57; Start 08/03/18 at 16:45; Stop 08/04/18 at 09:49; Status DC Metoprolol Tartrate (Lopressor) 25 mg BID PO Last administered on 08/04/18at 08:56; Start 08/03/18 at 21:00 Iohexol (Omnipaque 300 Mg/ml) 60 ml 1X ONCE IV ; Start 08/03/18 at 20:45; Stop 08/03/18 at 20:46; Status DC Info (CONTRAST GIVEN -- Rx MONITORING) 1 each PRN DAILY PRN MC SEE COMMENTS; Start 08/03/18 at 20:45; Stop 08/05/18 at 20:44 Iohexol (Omnipaque 300 Mg/ml) 60 ml 1X ONCE IV ; Start 08/04/18 at 08:45; Stop 08/04/18 at 08:46; Status DC Info (CONTRAST GIVEN -- Rx MONITORING) 1 each PRN DAILY PRN MC SEE COMMENTS; Start 08/04/18 at 09:00; Stop 08/06/18 at 08:59 Carbamazepine (TEGretol) 200 mg BID PO Last administered on 08/04/18at 10:21; Start 08/04/18 at 10:00; Stop 08/04/18 at 10:31; Status DC Furosemide (Lasix) 40 mg DAILY PO Last administered on 08/04/18at 10:21; Start 08/04/18 at 10:00; Stop 08/04/18 at 13:44; Status DC Metoprolol Tartrate (Lopressor) 25 mg BID PO ; Start 08/04/18 at 21:00; Status UNV Gabapentin (Neurontin) 300 mg TID PO Last administered on 08/04/18at 10:21; Start 08/04/18 at 10:00 Meclizine HCl (Antivert) 25 mg TID PO Last administered on 08/04/18at 10:20; Start 08/04/18 at 10:00 Sodium Chloride 1,000 ml @ 125 mls/hr 1X ONCE IV Last administered on 08/04/18at 10:21; Start 08/04/18 at 09:30; Stop 08/04/18 at 17:29 Pantoprazole Sodium (Protonix) 40 mg BIDAC PO ; Start 08/04/18 at 16:30 Carbamazepine (TEGretol) 400 mg BID PO ; Start 08/04/18 at 21:00 Carbamazepine (TEGretol) 200 mg 1X ONCE PO Last administered on 08/04/18at 11:59; Start 08/04/18 at 11:00; Stop 08/04/18 at 11:01; Status DC Active Scripts Active Reported Warfarin Sodium 10 Mg Tablet 10 Mg PO QWE Warfarin Sodium 7.5 Mg Tablet 7.5 Mg PO DAILY Crestor (Rosuvastatin Calcium) 20 Mg Tablet 1 Tab PO HS Klor-Con (Potassium Chloride) 20 Meq Packet 20 Meq PO DAILY Metoprolol Tartrate 25 Mg Tablet 1 Tab PO BID Meclizine Hcl 25 Mg Tablet 1 Tab PO BID Gabapentin 600 Mg Tablet 300 Mg PO BID Furosemide 40 Mg Tablet 1 Tab PO DAILY Tegretol (Carbamazepine) 200 Mg Tablet 2 Tab PO BID Aspirin Ec (Aspirin) 81 Mg Tablet. 1 Tab PO DAILY Vitals/I & O Vital Sign - Last 24 Hours 5/1308/03/18 08/03/18 08/03/18 16:13 17:50 18:05 19:05 Temp 97.6 96.7 97.1 97.6 96.7 97.1 Pulse 101 101 94 94 Resp 18 18 18 18 B/P (MAP) 113/71 (85) 104/61 103/62 110/60 Pulse Ox 96 O2 Delivery Nasal Cannula O2 Flow Rate 2.0 08/03/18 08/03/18 08/03/18 08/03/18 19:21 19:24 20:50 20:58 Temp 98.1 98.1 Pulse 104 94 106 Resp B/P (MAP) 105/65 (78) 112/66 100/61 Pulse Ox 93 93 O2 Delivery Nasal Cannula Nasal Cannula O2 Flow Rate 2.0 2.0 08/03/18 08/03/18 08/03/18 08/03/18 22:00 22:02 23:00 23:00 Temp 97.5 97.5 97.5 97.5 Pulse 103 103 104 104 Resp 18 18 18 B/P (MAP) 109/62 109/62 144/77 (99) 144/77 O2 Delivery Nasal Cannula O2 Flow Rate 2.0 08/03/18 08/04/18 08/04/18 08/04/18 23:44 03:11 07:00 07:24 Temp 98.1 97.5 97.5 98.1 97.5 97.5 Pulse 101 87 92 Resp 18 18 18 B/P (MAP) 122/73 (89) 120/71 (87) 126/68 (87) Pulse Ox 90 92 95 94 O2 Delivery Nasal Cannula Nasal Cannula Nasal Cannula Nasal Cannula O2 Flow Rate 2.0 2.0 2.0 2.0 08/04/18 08/04/18 08/04/18 08/04/18 08:00 08:56 11:00 11:07 Temp 97.3 97.3 Pulse 92 75 Resp 16 B/P (MAP) 126/68 133/67 (89) Pulse Ox 100 100 O2 Delivery Nasal Cannula Nasal Cannula Nasal Cannula O2 Flow Rate 2.0 2.0 2.0 Intake and Output 08/03/18 08/03/18 08/04/18 15:00 23:00 07:00 Intake Total 200 ml 400 ml Balance 200 ml 400 ml ESTELLA SPENCER MD August 04, 2018 15:14
[2018-08-04] MEDS: PANTOPRAZOLE 40 MG TABLET.DR. PO SCH (16:30)
[2018-08-04 19:15] VITALS: BP 101/57
[2018-08-04] MEDS ORDERED: METOPROLOL TART IMMED RELEASE 25 MG TABLET. PO SCH (21:00)
[2018-08-04] MEDS: LACTOBACILLUS RHAMNOSUS GG 1 CAPSULE. PO SCH (21:29)
[2018-08-04] MEDS: carBAMazepine 200 MG TABLET PO SCH (21:29)
[2018-08-04 23:15] VITALS: BP 116/69
[2018-08-05 03:15] VITALS: BP 103/65
[2018-08-05 05:08] LABS: BASO % 0 % (0-3); EOS % 0 % (0-3); HEMOGLOBIN 8.7 g/dL (13.0-17.5); LYMPH % 14 % (24-48); MEAN CORPUSCULAR HEMOGLOBIN 31 pg (25-35); MEAN CORPUSCULAR HGB CONC 34 g/dL (31-37); MEAN CORPUSCULAR VOLUME 92 fL (79-100); MONO # 0.6 x10^3/uL (0.0-1.1); MONO % 9 % (0-9); NEUT # 5.7 x10^3uL (1.8-7.7); NEUT % 77 % (31-73); PLATELET COUNT 207 x10^3/uL (140-400); RED BLOOD COUNT 2.81 x10^6/uL (4.30-5.70); RED CELL DISTRIBUTION WIDTH 14.8 % (11.5-14.5); WHITE BLOOD COUNT 7.4 x10^3/uL (4.0-11.0)
[2018-08-05 05:11] LABS: PROTHROMBIN TIME PATIENT 17.3 SEC (11.7-14.0)
[2018-08-05 05:18] LABS: CALCIUM 8.5 mg/dL (8.5-10.1); CREATININE 1.3 mg/dL (0.7-1.3); GFR 52.6; POTASSIUM 3.3 mmol/L (3.5-5.1)
[2018-08-05 07:00] VITALS: BP 121/80
[2018-08-05] MEDS: IPRATRPIUM/ALBUTEROL 0.5/2.5MG 3 ML NEBU. NEB SCH (07:34)
[2018-08-05] MEDS: BUDESONIDE 0.5 MG/2 ML NEBU. NEB SCH (07:34)
[2018-08-05] MEDS ORDERED: POTASSIUM CHLORIDE 20 MEQ TABLET.ER. PO ONE (08:15)
[2018-08-05] MEDS: AZITHROMYCIN 250 MG TABLET. PO SCH (08:25)
[2018-08-05] MEDS: carBAMazepine 200 MG TABLET PO SCH (08:25)
[2018-08-05] MEDS: predniSONE 20 MG TABLET PO SCH (08:25)
[2018-08-05] MEDS: MECLIZINE HCL 12.5 MG TABLET. PO SCH (08:26)
[2018-08-05] MEDS: METOPROLOL TART IMMED RELEASE 25 MG TABLET. PO SCH (08:26)
[2018-08-05] MEDS: GABAPENTIN 300 MG CAPSULE. PO SCH (08:26)
[2018-08-05] MEDS: LACTOBACILLUS RHAMNOSUS GG 1 CAPSULE. PO SCH (08:26)
[2018-08-05] MEDS: PANTOPRAZOLE 40 MG TABLET.DR. PO SCH (08:26)
--- NOTE | 2018-08-05 09:48 | PDOC2 ---
CARDIAC CONSULT DATE OF CONSULT Date of Consult DATE: 08/05/18 TIME: 09:41 REASON FOR CONSULT Reason for Consult: Bradycardia episodes REFERRING PHYSICIAN Referring Physician: Dr. Phillips SOURCE Source: Chart review, Patient HISTORY OF PRESENT ILLNESS HISTORY OF PRESENT ILLNESS This is an 83 yo male who initially presented to [facility] secondary to dizziness, cough, congestion, and subjective fevers. Saw PCP, who sent him to [facility] for lab work. INR was noted to be critical at 6.2, hgb 9.4. Patient was transferred to [facility] for further evaluation and care. Was noted to be bradycardiac the night before last while sleeping, which prompted this consult. Patient has a history of CAD s/p CABG in 2004, hypertension, hyperlipidemia, aortic aneurysm repair, and PAFIB on warfarin therapy. Follows closely with Dr. Hamilton of [facility]. Reports having echocardiogram and event monitor x8 days about 6 months ago. Reports events monitor showed few periods of slow HR and AFIB- but was not concerning to primary house carpenter. No medication adjustment were made. PAST MEDICAL HISTORY Cardiovascular: AFIB, CAD, HTN, Hyperlipidemia Pulmonary: COPD CENTRAL NERVOUS SYSTEM: Other (no pertinent hx) GI: No pertinent hx Heme/Onc: No pertinent hx Hepatobiliary: No pertinent hx Psych: No pertinent hx Musculoskeletal: Osteoarthritis Rheumatologic: No pertinent hx Infectious disease: No pertinent hx ENT: No pertinent hx Renal/: No pertinent hx Endocrine: No pertinent hx Dermatology: No pertinent hx PAST SURGICAL HISTORY Past Surgical History: CABG, Hernia Repair, Other (internal and external iliac stent) FAMILY HISTORY Family History: Coronary Artery Disease SOCIAL HISTORY Smoke: <1 pack per day ALCOHOL: none Drugs: None Lives: with Family CURRENT MEDICATIONS CURRENT MEDICATIONS Current Medications Medications (Trade) Dose Ordered Sig/Sae Route PRN Reason Start Time Stop Time Status Last Admin Dose Admin Carbamazepine (TEGretol) 200 mg BID PO 08/04/18 10:00 08/04/18 10:31 DC 08/04/18 10:21 Furosemide (Lasix) 40 mg DAILY PO 08/04/18 10:00 08/04/18 13:44 DC 08/04/18 10:21 Gabapentin (Neurontin) 300 mg TID PO 08/04/18 10:00 08/05/18 08:26 Meclizine HCl (Antivert) 25 mg TID PO 08/04/18 10:00 08/05/18 08:26 Pantoprazole Sodium (Protonix) 40 mg BIDAC PO 08/04/18 16:30 08/05/18 08:26 Carbamazepine (TEGretol) 400 mg BID PO 08/04/18 21:00 08/05/18 08:25 Carbamazepine (TEGretol) 200 mg 1X ONCE PO 08/04/18 11:00 08/04/18 11:01 DC 08/04/18 11:59 Lactobacillus Rhamnosus (Culturelle) 1 cap BID PO 08/04/18 21:00 08/05/18 08:26 Potassium Chloride (Klor-Con) 20 meq 1X ONCE PO 08/05/18 08:15 08/05/18 08:16 DC 08/05/18 08:28 ALLERGIES ALLERGIES: Coded Allergies: No Known Drug Allergies (Unverified , 08/03/18) ROS Review of System 14 point ROS conducted with pertinent positives noted above in HPI. PHYSICAL EXAM General: Alert, Oriented X3, Cooperative, No acute distress HEENT: Atraumatic, Mucous membr. moist/pink Lungs: Clear to auscultation, Other (fine expiratory wheezes) Heart: Regular rate, Normal S1, Normal S2 Abdomen: Soft Extremities: No edema, Normal pulses Skin: No breakdown, No significant lesion Neuro: Normal speech, Sensation intact Psych/Mental Status: Mental status NL, Mood NL MUSCULOSKELETAL: Osteoarthritic changes both hands VITALS VITALS Vital Signs Date Time Temp Pulse Resp B/P (MAP) Pulse Ox O2 Delivery O2 Flow Rate FiO2 08/05/18 08:26 99 08/05/18 08:00 Nasal Cannula 2.0 08/05/18 07:34 96 08/05/18 07:00 98.5 18 121/80 (94) 98.5 LABS Lab: Laboratory Tests Test 08/05/18 04:25 White Blood Count 7.4 x10^3/uL (4.0-11.0) Red Blood Count 2.81 x10^6/uL (4.30-5.70) Hemoglobin 8.7 g/dL (13.0-17.5) Hematocrit 26.0 % (39.0-53.0) Mean Corpuscular Volume 92 fL (79-100) Mean Corpuscular Hemoglobin 31 pg (25-35) Mean Corpuscular Hemoglobin Concent 34 g/dL (31-37) Red Cell Distribution Width 14.8 % (11.5-14.5) Platelet Count 207 x10^3/uL (140-400) Neutrophils (%) (Auto) 77 % (31-73) Lymphocytes (%) (Auto) 14 % (24-48) Monocytes (%) (Auto) 9 % (0-9) Eosinophils (%) (Auto) 0 % (0-3) Basophils (%) (Auto) 0 % (0-3) Neutrophils # (Auto) 5.7 x10^3uL (1.8-7.7) Lymphocytes # (Auto) 1.0 x10^3/uL (1.0-4.8) Monocytes # (Auto) 0.6 x10^3/uL (0.0-1.1) Eosinophils # (Auto) 0.0 x10^3/uL (0.0-0.7) Basophils # (Auto) 0.0 x10^3/uL (0.0-0.2) Prothrombin Time 17.3 SEC (11.7-14.0) Prothromb Time International Ratio 1.4 (0.8-1.1) Sodium Level 137 mmol/L (136-145) Potassium Level 3.3 mmol/L (3.5-5.1) Chloride Level 101 mmol/L (98-107) Carbon Dioxide Level 27 mmol/L (21-32) Anion Gap 9 (6-14) Blood Urea Nitrogen 23 mg/dL (8-26) Creatinine 1.3 mg/dL (0.7-1.3) Estimated GFR (Cockcroft-Gault) 52.6 Glucose Level 94 mg/dL (70-99) Calcium Level 8.5 mg/dL (8.5-10.1) Magnesium Level 2.1 mg/dL (1.8-2.4) Thyroid Stimulating Hormone (TSH) 1.892 uIU/mL (0.358-3.74) ASSESSMENT/PLAN ASSESSMENT/PLAN 1. AE COPD with continued tobaccoism. Anemia probable also contributing to dyspnea. 2. Anemia; + fecal occult. s/p 1 u PRBCs. GI following 3. Bradycardia; lowest 39 night before last with one 2 second pause noted; all while sleeping. No further bradyarrhythmias noted. Event monitor about six months ago with primary house carpenter, Dr. Hamilton. 4. PAFIB. intermittent bursts of AFIB RVR this am. Now SR with controlled rate. On BB for rate control. on warfarin therapy at home. 5. Supratherapeutic INR; 7.3 upon arrival. S/p FFP, 1 unit PRBCs, and vit K. INR now 1.4 6. CAD s/p CABG 2004. Follows with [facility]. Echo within last 6 months at [facility] per patient 7. S/p right internal and external iliac artery stent.. 8. Hypertension; controlled 9. Hyperlipidemia; statin 10. Hypokalemia; replaced Recommendations Continue metoprolol for rate control Poor candidate for antiarrhythmic therapy given lung disease and CAD. ASA for stroke prevention for now. Will defer resumption of OAC to primary house carpenter Discussed/encourage smoking cessation Patient being discharged; follow up with Dr. Hamilton with [facility]. LUANN LOPES APRN August 05, 2018 09:48
--- NOTE | 2018-08-05 10:34 | PDOC ---
PULMONARY PROGRESS NOTES Subjective no soa Vitals Vital Signs Date Time Temp Pulse Resp B/P (MAP) Pulse Ox O2 Delivery O2 Flow Rate FiO2 08/05/18 08:26 99 08/05/18 08:00 Nasal Cannula 2.0 08/05/18 07:34 96 08/05/18 07:00 98.5 18 121/80 (94) 98.5 ROS: No Chest Pain General: Alert, No acute distress Lungs: Clear Cardiovascular: S1 Abdomen: Soft Neuro Exam: Alert Extremities: No Edema Skin: Warm Labs Laboratory Tests Test 08/03/18 15:45 08/04/18 06:00 08/05/18 04:25 White Blood Count 5.3 x10^3/uL (4.0-11.0) 6.4 x10^3/uL (4.0-11.0) 7.4 x10^3/uL (4.0-11.0) Red Blood Count 2.69 x10^6/uL (4.30-5.70) 2.90 x10^6/uL (4.30-5.70) 2.81 x10^6/uL (4.30-5.70) Hemoglobin 8.4 g/dL (13.0-17.5) 9.1 g/dL (13.0-17.5) 8.7 g/dL (13.0-17.5) Hematocrit 25.3 % (39.0-53.0) 26.7 % (39.0-53.0) 26.0 % (39.0-53.0) Mean Corpuscular Volume 94 fL (79-100) 92 fL (79-100) 92 fL (79-100) Mean Corpuscular Hemoglobin 31 pg (25-35) 31 pg (25-35) 31 pg (25-35) Mean Corpuscular Hemoglobin Concent 33 g/dL (31-37) 34 g/dL (31-37) 34 g/dL (31-37) Red Cell Distribution Width 14.3 % (11.5-14.5) 14.8 % (11.5-14.5) 14.8 % (11.5-14.5) Platelet Count 203 x10^3/uL (140-400) 214 x10^3/uL (140-400) 207 x10^3/uL (140-400) Neutrophils (%) (Auto) 88 % (31-73) 79 % (31-73) 77 % (31-73) Lymphocytes (%) (Auto) 5 % (24-48) 10 % (24-48) 14 % (24-48) Monocytes (%) (Auto) 7 % (0-9) 12 % (0-9) 9 % (0-9) Eosinophils (%) (Auto) 0 % (0-3) 0 % (0-3) 0 % (0-3) Basophils (%) (Auto) 0 % (0-3) 0 % (0-3) 0 % (0-3) Neutrophils # (Auto) 4.6 x10^3uL (1.8-7.7) 5.0 x10^3uL (1.8-7.7) 5.7 x10^3uL (1.8-7.7) Lymphocytes # (Auto) 0.3 x10^3/uL (1.0-4.8) 0.6 x10^3/uL (1.0-4.8) 1.0 x10^3/uL (1.0-4.8) Monocytes # (Auto) 0.4 x10^3/uL (0.0-1.1) 0.7 x10^3/uL (0.0-1.1) 0.6 x10^3/uL (0.0-1.1) Eosinophils # (Auto) 0.0 x10^3/uL (0.0-0.7) 0.0 x10^3/uL (0.0-0.7) 0.0 x10^3/uL (0.0-0.7) Basophils # (Auto) 0.0 x10^3/uL (0.0-0.2) 0.0 x10^3/uL (0.0-0.2) 0.0 x10^3/uL (0.0-0.2) Segmented Neutrophils % 69 % (35-66) Band Neutrophils % 23 % (0-9) Lymphocytes % 4 % (24-48) Monocytes % 2 % (0-10) Metamyelocytes % 2 % (0-0) Toxic Granulation Slight Dohle Bodies Present Platelet Estimate Adequate (ADEQUATE) Prothrombin Time 63.0 SEC (11.7-14.0) 23.8 SEC (11.7-14.0) 17.3 SEC (11.7-14.0) Prothromb Time International Ratio 7.3 (0.8-1.1) 2.2 (0.8-1.1) 1.4 (0.8-1.1) Fibrinogen 837 mg/dL (200-440) Sodium Level 134 mmol/L (136-145) 137 mmol/L (136-145) 137 mmol/L (136-145) Potassium Level 4.4 mmol/L (3.5-5.1) 4.1 mmol/L (3.5-5.1) 3.3 mmol/L (3.5-5.1) Chloride Level 97 mmol/L (98-107) 101 mmol/L (98-107) 101 mmol/L (98-107) Carbon Dioxide Level 29 mmol/L (21-32) 27 mmol/L (21-32) 27 mmol/L (21-32) Anion Gap 8 (6-14) 9 (6-14) 9 (6-14) Blood Urea Nitrogen 29 mg/dL (8-26) 27 mg/dL (8-26) 23 mg/dL (8-26) Creatinine 1.3 mg/dL (0.7-1.3) 1.1 mg/dL (0.7-1.3) 1.3 mg/dL (0.7-1.3) Estimated GFR (Cockcroft-Gault) 52.6 63.8 52.6 Glucose Level 137 mg/dL (70-99) 120 mg/dL (70-99) 94 mg/dL (70-99) Calcium Level 8.8 mg/dL (8.5-10.1) 8.9 mg/dL (8.5-10.1) 8.5 mg/dL (8.5-10.1) Total Bilirubin 0.3 mg/dL (0.2-1.0) 0.4 mg/dL (0.2-1.0) Lactate Dehydrogenase 142 U/L (85-227) BUN/Creatinine Ratio 25 (6-20) Aspartate Amino Transf (AST/SGOT) 56 U/L (15-37) Alanine Aminotransferase (ALT/SGPT) 54 U/L (16-63) Alkaline Phosphatase 145 U/L (46-116) Total Protein 6.6 g/dL (6.4-8.2) Albumin 2.3 g/dL (3.4-5.0) Albumin/Globulin Ratio 0.5 (1.0-1.7) Magnesium Level 2.1 mg/dL (1.8-2.4) Thyroid Stimulating Hormone (TSH) 1.892 uIU/mL (0.358-3.74) Laboratory Tests Test 08/05/18 04:25 White Blood Count 7.4 x10^3/uL (4.0-11.0) Red Blood Count 2.81 x10^6/uL (4.30-5.70) Hemoglobin 8.7 g/dL (13.0-17.5) Hematocrit 26.0 % (39.0-53.0) Mean Corpuscular Volume 92 fL (79-100) Mean Corpuscular Hemoglobin 31 pg (25-35) Mean Corpuscular Hemoglobin Concent 34 g/dL (31-37) Red Cell Distribution Width 14.8 % (11.5-14.5) Platelet Count 207 x10^3/uL (140-400) Neutrophils (%) (Auto) 77 % (31-73) Lymphocytes (%) (Auto) 14 % (24-48) Monocytes (%) (Auto) 9 % (0-9) Eosinophils (%) (Auto) 0 % (0-3) Basophils (%) (Auto) 0 % (0-3) Neutrophils # (Auto) 5.7 x10^3uL (1.8-7.7) Lymphocytes # (Auto) 1.0 x10^3/uL (1.0-4.8) Monocytes # (Auto) 0.6 x10^3/uL (0.0-1.1) Eosinophils # (Auto) 0.0 x10^3/uL (0.0-0.7) Basophils # (Auto) 0.0 x10^3/uL (0.0-0.2) Prothrombin Time 17.3 SEC (11.7-14.0) Prothromb Time International Ratio 1.4 (0.8-1.1) Sodium Level 137 mmol/L (136-145) Potassium Level 3.3 mmol/L (3.5-5.1) Chloride Level 101 mmol/L (98-107) Carbon Dioxide Level 27 mmol/L (21-32) Anion Gap 9 (6-14) Blood Urea Nitrogen 23 mg/dL (8-26) Creatinine 1.3 mg/dL (0.7-1.3) Estimated GFR (Cockcroft-Gault) 52.6 Glucose Level 94 mg/dL (70-99) Calcium Level 8.5 mg/dL (8.5-10.1) Magnesium Level 2.1 mg/dL (1.8-2.4) Thyroid Stimulating Hormone (TSH) 1.892 uIU/mL (0.358-3.74) Medications Active Scripts Medications Dose Route/Sig Max Daily Dose Days Date Category Warfarin Sodium 10 Mg Tablet 10 Mg PO QWE 08/04/18 Reported Warfarin Sodium 7.5 Mg Tablet 7.5 Mg PO DAILY 08/04/18 Reported Crestor (Rosuvastatin Calcium) 20 Mg Tablet 1 Tab PO HS 08/04/18 Reported Klor-Con (Potassium Chloride) 20 Meq Packet 20 Meq PO DAILY 08/04/18 Reported Metoprolol Tartrate 25 Mg Tablet 1 Tab PO BID 08/04/18 Reported Meclizine Hcl 25 Mg Tablet 1 Tab PO BID 08/04/18 Reported Gabapentin 600 Mg Tablet 300 Mg PO BID 08/04/18 Reported Furosemide 40 Mg Tablet 1 Tab PO DAILY 08/04/18 Reported Tegretol (Carbamazepine) 200 Mg Tablet 2 Tab PO BID 08/04/18 Reported Aspirin Ec (Aspirin) 81 Mg Tablet.dr 1 Tab PO DAILY 08/04/18 Reported Impression . 1. Dyspnea with acute hypoxic respiratory failure secondary to acute exacerbation of chronic obstructive pulmonary disease and markedly contributed by progressive anemia. 2. Acute blood loss anemia. Could be [id number]. He presented with hemoglobin of 4.0 at [place], now hemoglobin improved 3. History of increasing nodule involving the left upper lobe, which was 11 mm in size and also right hilar fullness. He had abnormal PET scan in 2018 in those areas and he was a high risk candidate for biopsy. As a result, he has been empirically treated by seafood processor from [facility]. He sees them at [facility] and has a last CAT scan done a month ago and was told that it has been shrinking. 4. Severe protein-calorie malnutrition with an albumin level of 2.3. 5. Acute bronchitis. clear cxr 6. Atrial fibrillation, on chronic anticoagulation with Coumadin and had Coumadin overdose with INR of 7.3, Plan . 1. Continue with present oxygen. 2. clear chest x-ray. 3. Bronchodilators. 4. Empiric antibiotic 5. Follow GI recommendations. 6. The patient to follow with [facility] regarding further followup on these lung nodules and right hilar fullness. 7. resumption of AC per PCP DORITA PATTON MD August 05, 2018 10:34
[2018-08-05] MEDS ORDERED: AZIT250T6 PO (11:05)
[2018-08-05] MEDS ORDERED: PRED20TA PO (11:05)
--- NOTE | 2018-08-05 11:34 | NUR ---
Discharge Note: ZULY COLVIN [address] [place] [address] Discharge instructions and discharge home medications reviewed with Patient and a copy given. All questions have been answered and understanding verbalized. The following instructions and handouts were given: ACTIVITY, DIET, MEDICATION LIST, AND FOLLOW-UP APPOINTMENTS. Discontinued lines and drains: Peripheral IV DISCONTINUED AND CATHETER intact. Patient discharged to Home or Self Care with Spouse via Wheelchair.
--- NOTE | 2018-08-05 11:37 | PDOC3 ---
Discharge Summary Visit Information Date of Admission: August 03, 2018 Date of Discharge: August 05, 2018 Admitting Diagnosis: Supratherapeutic INR Final Diagnosis 1. AE COPD with ongoing tobaccoism. Anemia probable also contributing to dyspnea. 2. Anemia; + fecal occult. GI following 3. Bradycardia; lowest 39 night before last with one 2 second pause noted; all while sleeping. No further bradyarrhythmias noted. Event monitor about six months ago with primary chief creative officer, Dr. Hamilton. 4. PAFIB. intermittent bursts of AFIB RVR this am. Now SR with controlled rat. On BB for rate control. on warfarin therapy at home. 5. Supratherapeutic INR; 7.3 upon arrival. S/p FFP, 1 unit PRBCs, and vit K. INR now 1.4 6. CAD s/p CABG 2004. Follows with [facility]. Echo within last [address] [facility] per patient 7. S/p right internal and external iliac artery stent.. 8. Hypertension; controlled 9. Hyperlipidemia; statin 10. Hypokalemia; replaced Brief Hospital Course Allergies Allergies Coded Allergies Type Severity Reaction Last Updated Verified No Known Drug Allergies 08/03/18 No Vital Signs Vital Signs Date Time Temp Pulse Resp B/P (MAP) Pulse Ox O2 Delivery O2 Flow Rate FiO2 08/05/18 08:26 99 08/05/18 08:00 Nasal Cannula 2.0 08/05/18 07:34 96 08/05/18 07:00 98.5 18 121/80 (94) 98.5 Lab Results Laboratory Tests Test 08/03/18 15:45 08/04/18 06:00 08/05/18 04:25 White Blood Count 5.3 x10^3/uL (4.0-11.0) 6.4 x10^3/uL (4.0-11.0) 7.4 x10^3/uL (4.0-11.0) Red Blood Count 2.69 x10^6/uL (4.30-5.70) 2.90 x10^6/uL (4.30-5.70) 2.81 x10^6/uL (4.30-5.70) Hemoglobin 8.4 g/dL (13.0-17.5) 9.1 g/dL (13.0-17.5) 8.7 g/dL (13.0-17.5) Hematocrit 25.3 % (39.0-53.0) 26.7 % (39.0-53.0) 26.0 % (39.0-53.0) Mean Corpuscular Volume 94 fL (79-100) 92 fL (79-100) 92 fL (79-100) Mean Corpuscular Hemoglobin 31 pg (25-35) 31 pg (25-35) 31 pg (25-35) Mean Corpuscular Hemoglobin Concent 33 g/dL (31-37) 34 g/dL (31-37) 34 g/dL (31-37) Red Cell Distribution Width 14.3 % (11.5-14.5) 14.8 % (11.5-14.5) 14.8 % (11.5-14.5) Platelet Count 203 x10^3/uL (140-400) 214 x10^3/uL (140-400) 207 x10^3/uL (140-400) Neutrophils (%) (Auto) 88 % (31-73) 79 % (31-73) 77 % (31-73) Lymphocytes (%) (Auto) 5 % (24-48) 10 % (24-48) 14 % (24-48) Monocytes (%) (Auto) 7 % (0-9) 12 % (0-9) 9 % (0-9) Eosinophils (%) (Auto) 0 % (0-3) 0 % (0-3) 0 % (0-3) Basophils (%) (Auto) 0 % (0-3) 0 % (0-3) 0 % (0-3) Neutrophils # (Auto) 4.6 x10^3uL (1.8-7.7) 5.0 x10^3uL (1.8-7.7) 5.7 x10^3uL (1.8-7.7) Lymphocytes # (Auto) 0.3 x10^3/uL (1.0-4.8) 0.6 x10^3/uL (1.0-4.8) 1.0 x10^3/uL (1.0-4.8) Monocytes # (Auto) 0.4 x10^3/uL (0.0-1.1) 0.7 x10^3/uL (0.0-1.1) 0.6 x10^3/uL (0.0-1.1) Eosinophils # (Auto) 0.0 x10^3/uL (0.0-0.7) 0.0 x10^3/uL (0.0-0.7) 0.0 x10^3/uL (0.0-0.7) Basophils # (Auto) 0.0 x10^3/uL (0.0-0.2) 0.0 x10^3/uL (0.0-0.2) 0.0 x10^3/uL (0.0-0.2) Segmented Neutrophils % 69 % (35-66) Band Neutrophils % 23 % (0-9) Lymphocytes % 4 % (24-48) Monocytes % 2 % (0-10) Metamyelocytes % 2 % (0-0) Toxic Granulation Slight Dohle Bodies Present Platelet Estimate Adequate (ADEQUATE) Prothrombin Time 63.0 SEC (11.7-14.0) 23.8 SEC (11.7-14.0) 17.3 SEC (11.7-14.0) Prothromb Time International Ratio 7.3 (0.8-1.1) 2.2 (0.8-1.1) 1.4 (0.8-1.1) Fibrinogen 837 mg/dL (200-440) Sodium Level 134 mmol/L (136-145) 137 mmol/L (136-145) 137 mmol/L (136-145) Potassium Level 4.4 mmol/L (3.5-5.1) 4.1 mmol/L (3.5-5.1) 3.3 mmol/L (3.5-5.1) Chloride Level 97 mmol/L (98-107) 101 mmol/L (98-107) 101 mmol/L (98-107) Carbon Dioxide Level 29 mmol/L (21-32) 27 mmol/L (21-32) 27 mmol/L (21-32) Anion Gap 8 (6-14) 9 (6-14) 9 (6-14) Blood Urea Nitrogen 29 mg/dL (8-26) 27 mg/dL (8-26) 23 mg/dL (8-26) Creatinine 1.3 mg/dL (0.7-1.3) 1.1 mg/dL (0.7-1.3) 1.3 mg/dL (0.7-1.3) Estimated GFR (Cockcroft-Gault) 52.6 63.8 52.6 Glucose Level 137 mg/dL (70-99) 120 mg/dL (70-99) 94 mg/dL (70-99) Calcium Level 8.8 mg/dL (8.5-10.1) 8.9 mg/dL (8.5-10.1) 8.5 mg/dL (8.5-10.1) Total Bilirubin 0.3 mg/dL (0.2-1.0) 0.4 mg/dL (0.2-1.0) Lactate Dehydrogenase 142 U/L (85-227) BUN/Creatinine Ratio 25 (6-20) Aspartate Amino Transf (AST/SGOT) 56 U/L (15-37) Alanine Aminotransferase (ALT/SGPT) 54 U/L (16-63) Alkaline Phosphatase 145 U/L (46-116) Total Protein 6.6 g/dL (6.4-8.2) Albumin 2.3 g/dL (3.4-5.0) Albumin/Globulin Ratio 0.5 (1.0-1.7) Magnesium Level 2.1 mg/dL (1.8-2.4) Thyroid Stimulating Hormone (TSH) 1.892 uIU/mL (0.358-3.74) Laboratory Tests Test 08/05/18 04:25 White Blood Count 7.4 x10^3/uL (4.0-11.0) Red Blood Count 2.81 x10^6/uL (4.30-5.70) Hemoglobin 8.7 g/dL (13.0-17.5) Hematocrit 26.0 % (39.0-53.0) Mean Corpuscular Volume 92 fL (79-100) Mean Corpuscular Hemoglobin 31 pg (25-35) Mean Corpuscular Hemoglobin Concent 34 g/dL (31-37) Red Cell Distribution Width 14.8 % (11.5-14.5) Platelet Count 207 x10^3/uL (140-400) Neutrophils (%) (Auto) 77 % (31-73) Lymphocytes (%) (Auto) 14 % (24-48) Monocytes (%) (Auto) 9 % (0-9) Eosinophils (%) (Auto) 0 % (0-3) Basophils (%) (Auto) 0 % (0-3) Neutrophils # (Auto) 5.7 x10^3uL (1.8-7.7) Lymphocytes # (Auto) 1.0 x10^3/uL (1.0-4.8) Monocytes # (Auto) 0.6 x10^3/uL (0.0-1.1) Eosinophils # (Auto) 0.0 x10^3/uL (0.0-0.7) Basophils # (Auto) 0.0 x10^3/uL (0.0-0.2) Prothrombin Time 17.3 SEC (11.7-14.0) Prothromb Time International Ratio 1.4 (0.8-1.1) Sodium Level 137 mmol/L (136-145) Potassium Level 3.3 mmol/L (3.5-5.1) Chloride Level 101 mmol/L (98-107) Carbon Dioxide Level 27 mmol/L (21-32) Anion Gap 9 (6-14) Blood Urea Nitrogen 23 mg/dL (8-26) Creatinine 1.3 mg/dL (0.7-1.3) Estimated GFR (Cockcroft-Gault) 52.6 Glucose Level 94 mg/dL (70-99) Calcium Level 8.5 mg/dL (8.5-10.1) Magnesium Level 2.1 mg/dL (1.8-2.4) Thyroid Stimulating Hormone (TSH) 1.892 uIU/mL (0.358-3.74) Brief Hospital Course Mr. Luong, 83 y/o male transfer here from [facility] ER for weakness, cough, jorge ed Hgb drop, 4 g/dl he has felt chest congestion and weakness for about a weak, presyncope at home, has had SOA, subjective fever, and cough. he reports no known change in stool, no blood in stool, hemocult pos at OSH At [facility], Hgb 9.4, MCV 96, plt 252, INR 6.2 Patient was admitted to the hospital where he received supportive care in C dose of vitamin K as well as FFP is elevated INR. The patient was seen by GI and pulmonology as well due to acute exacerbation of COPD requiring him to be on a zithromycin which most likely has played a role in his INR being elevated. Given that the patient did not percent active bleeding from the GI tract he was deemed appropriate for dismissal from the GI standpoint of view once his INR has been corrected. On the day of discharge his INR was 1.4 and 19 instructions to follow-up closely with his chief creative officer was contacted by my colleagues on the day prior to his dismissal. He will need very close monitoring and possibly change his anticoagulation to probably have one of the new agents 10 A antagonist. Respiratory status improved patient did not have chest pain palpitations no concerns from last hospital stay. Given that he has established chief creative officer further workup can certainly be done in the outpatient setting as recommended by our vocational rehab consultant here in the inpatient setting. Signs and symptoms of alarm discussed with the patient prior to discharge all of his questions were answered to the best of my abilities greater than 35 minutes were spent in the discharge from the patient in counseling coronation of care and arrangements for a safe discharge Gen.: well-developed well-nourished in no apparent distress Head: Normal shape atraumatic Eyes: Pupils equal reactive to light and accommodation, normal conjunctivae and lids Ears: Normal shape Nose: Normal shape no trauma Mouth: No exudates of the back of throat no thrush no lesions Neck: Supple no JVD no carotid bruit or lymphadenopathy no thyromegaly Chest: Lungs clear to auscultation with good inspiratory effort no crackles rales or rhonchi Cardiovascular: S1-S2 irregular rhythm no murmurs gallops or rubs Abdomen: Bowel sounds present soft nontender no hepatosplenomegaly appreciated sign Extremities: No clubbing no cyanosis no edema peripheral pulses palpated bilaterally Neurological: Alert awake oriented in person time place and situation, cranial nerves II through XII intact, no motor or sensory deficits appreciated Psych: Appropriate mood, cooperative Discharge Information Condition at Discharge: Improved Follow Up: Weeks Disposition/Orders: D/C to Home Scheduled Aspirin (Aspirin Ec) 81 Mg Tablet., 1 TAB PO DAILY for cad, #30 Ref 3 (Reported) Entered as Reported by: Michelle Harry on 08/04/1838 Last Action: HELD on 08/04/18905 by ESTELLA SPENCER Azithromycin (Azithromycin Tablet) 250 Mg Tablet, 250 MG PO DAILY for bronchitis for 3 Days, #3 Prescribed by: TADEO FERNANDEZ MD on 08/05/181104 Carbamazepine (Tegretol) 200 Mg Tablet, 2 TAB PO BID for trigeminal neuralgia, #60 Ref 1 (Reported) Entered as Reported by: Michelle Harry on 08/04/1838 Last Action: Edited on 08/04/181028 by SAMUEL SHAFFER Furosemide (Furosemide) 40 Mg Tablet, 1 TAB PO DAILY for edema, #30 Ref 5 (Reported) Entered as Reported by: Michelle Harry on 08/04/1838 Last Action: Continued on 08/04/18905 by ESTELLA SPENCER Gabapentin (Gabapentin) 600 Mg Tablet, 300 MG PO BID for NEUROGENIC PAIN, (Reported) Entered as Reported by: Michelle Harry on 08/04/1838 Last Action: Edited on 08/04/181347 by SAMUEL SHAFFER Meclizine Hcl (Meclizine Hcl) 25 Mg Tablet, 1 TAB PO BID for dizziness, #90 (Reported) Entered as Reported by: Michelle Harry on 08/04/1838 Last Action: Edited on 08/04/181347 by SAMUEL SHAFFER Metoprolol Tartrate (Metoprolol Tartrate) 25 Mg Tablet, 1 TAB PO BID for htn, #180 Ref 1 (Reported) Entered as Reported by: Michelle Harry on 08/04/1838 Last Action: Continued on 08/04/18905 by ESTELLA SPENCER Potassium Chloride (Klor-Con) 20 Meq Packet, 20 MEQ PO DAILY for supplement, (Reported) Entered as Reported by: Michelle Harry on 08/04/1838 Last Action: HELD on 08/04/18905 by ESTELLA SPENCER Prednisone (Prednisone) 20 Mg Tablet, 40 MG PO DAILY for COPD for 3 Days, #6 Prescribed by: TADEO FERNANDEZ MD on 08/05/181104 Rosuvastatin Calcium (Crestor) 20 Mg Tablet, 1 TAB PO HS for hld, #30 Ref 5 (Reported) Entered as Reported by: Michelle Harry on 08/04/1838 Last Action: HELD on 08/04/18905 by ESTELLA SPENCER Warfarin Sodium (Warfarin Sodium) 7.5 Mg Tablet, 7.5 MG PO DAILY for afib, (Reported) Entered as Reported by: Michelle Harry on 08/04/1838 Last Action: New Order on 08/04/1838 by Michelle Harry Warfarin Sodium (Warfarin Sodium) 10 Mg Tablet, 10 MG PO QWE for afib, (Reported) Entered as Reported by: Michelle Harry on 08/04/1838 Last Action: HELD on 08/04/18905 by TADEO VELIZ MD August 05, 2018 11:37
== END 2018-08-05 11:30 | disposition home or self-care (01) | DRG 917 ==
LOC: MERGE 15:23 → 6 SOUTH 15:23
PROVIDERS: ADMIT Internal Medicine; ATTEND Internal Medicine
PROC: 30233L1 Transfusion of Nonautologous Fresh Plasma into Peripheral Vein, Percutaneous Approach (ICD-10-PCS; principal; 2018-08-03)
PROC: 30233N1 Transfusion of Nonautologous Red Blood Cells into Peripheral Vein, Percutaneous Approach (ICD-10-PCS; 2018-08-03)
PROC: 30233K1 Transfusion of Nonautologous Frozen Plasma into Peripheral Vein, Percutaneous Approach (ICD-10-PCS; 2018-08-03)
DX: T45.511A Poisoning by anticoagulants, accidental (unintentional), initial encounter (principal); J96.01 Acute respiratory failure with hypoxia; E43 Unspecified severe protein-calorie malnutrition; D62 Acute posthemorrhagic anemia; J44.1 Chronic obstructive pulmonary disease with (acute) exacerbation; I50.32 Chronic diastolic (congestive) heart failure; J44.0 Chronic obstructive pulmonary disease with (acute) lower respiratory infection; D68.9 Coagulation defect, unspecified; I25.10 Atherosclerotic heart disease of native coronary artery without angina pectoris; I11.0 Hypertensive heart disease with heart failure; K21.9 Gastro-esophageal reflux disease without esophagitis; T45.515A Adverse effect of anticoagulants, initial encounter; J20.9 Acute bronchitis, unspecified; I48.91 Unspecified atrial fibrillation; F17.210 Nicotine dependence, cigarettes, uncomplicated; E78.5 Hyperlipidemia, unspecified; E87.6 Hypokalemia; M51.35 Other intervertebral disc degeneration, thoracolumbar region; K21.0 Gastro-esophageal reflux disease with esophagitis; M19.90 Unspecified osteoarthritis, unspecified site; N40.0 Benign prostatic hyperplasia without lower urinary tract symptoms; Z80.9 Family history of malignant neoplasm, unspecified; Z82.49 Family history of ischemic heart disease and other diseases of the circulatory system; Z87.11 Personal history of peptic ulcer disease; Z86.79 Personal history of other diseases of the circulatory system; Z95.5 Presence of coronary angioplasty implant and graft; Z95.1 Presence of aortocoronary bypass graft; Z79.01 Long term (current) use of anticoagulants; Z68.22 Body mass index [BMI] 22.0-22.9, adult
CPT/HCPCS: 36415; 71045; 74177; 80048; 80053; 82247; 83615; 83735; 84443; 85007; 85025; 85384; 85610; 86850; 86900; 86901; 86920; 86927; 94640; 94760; C9113; J3430; J7030; J7512; J7620; J7626; J8597; P9016; P9017; Q0144